=== PATIENT | female | born 1965 | race Caucasian/White ===

== ENCOUNTER 2017-05-23 07:37 | Emergency (ER) | payer BC, OTHER ==
[~2017-05-23] VITALS: Ht 157.5 cm; Wt 103.0 kg
[~2017-05-23 07:37] MED LIST: CYCL-36 PO; DICL75 PO
[2017-05-23 07:41] VITALS: BP 236/113; PULSE 82; RESP 16; TEMP 98.1; O2SAT 93
[2017-05-23 08:03] LABS: BLOOD, URINE SMALL (NEG); GLUCOSE,URINE NEG (NEG); KETONE, URINE 15 mg/dL (NEG); NITRITE,URINE NEG (NEG); PH, URINE 5.5 (5.0-8.5); URINE COLOR YELLOW (YELLW/STRAW); URINE LEUKOCYTE ESTERASE NEG (NEG)
[2017-05-23 08:11] LABS: BILIRUBIN, URINE NEG (NEG)
--- NOTE | 2017-05-23 08:11 | PD ---
HPI Chief Complaint: Abdominal Pain Time Seen by Provider: 08:07 Travel History International Travel<30 days: No Contact w/Intl Traveler<30days: No Traveled to known affect area: No History of Present Illness HPI This 51-year-old female is complaining of abdominal pain and vomiting. She was diagnosed with type 2 diabetes about a month ago. At that time she was started on metformin, cholesterol medication and a blood pressure medicine. She took them for a while and started to develop discomfort across her upper abdomen. She has been very nauseated in the last few days unable to hold anything down she says she sometimes is able to hold something down and she vomits nothing comes back. She has been constipated. She has a history of an appendectomy in 1984. Discomfort is been fairly constant. She has not taken her metformin since Sunday and she has not been able to take her blood pressure medicine for cholesterol medicine for 2 days PFSH Past Medical History Hx Anticoagulant Therapy: No Arthritis: Yes Cardiovascular Problems: Yes (HTN, CHOL) Diabetes: Yes Diminished Hearing: No Hypertension: Yes Immunizations Current: Yes ?: Not Menopausal: Yes Past Surgical History Appendectomy: Yes Social History Alcohol Use: No Tobacco Use: Yes Substance Use: No Allergies-Medications (Allergen,Severity, Reaction): Coded Allergies: No Known Allergies (Unverified Adverse Reaction, Unknown, 05/23/17) Reported Meds & Prescriptions Reported Meds & Active Scripts Active Reported Atorvastatin (Atorvastatin Calcium) 20 Mg Tab 20 Mg PO HS Lisinopril 20 Mg Tab 20 Mg PO DAILY Review of Systems General / Constitutional: No: Fever, Chills Eyes: No: Diploplia, Blurred Vision HENT: No: Headaches, Vertigo Cardiovascular: No: Chest Pain or Discomfort, Palpitations Respiratory: No: Cough Gastrointestinal: Positive: Nausea, Vomiting Genitourinary: No: Frequency Musculoskeletal: No: Myalgias, Arthralgias Skin: No Rash, No Itching Neurologic: No: Weakness, Dizziness Hematologic/Lymphatic: No: Easy Bruising Physical Exam Narrative GENERAL: Well-developed female SKIN: Focused skin assessment warm/dry. HEAD: Atraumatic. Normocephalic. EYES: Pupils equal and round. No scleral icterus. No injection or drainage. ENT: No nasal bleeding or discharge. Mucous membranes pink and moist. NECK: Trachea midline. No JVD. CARDIOVASCULAR: Regular rate and rhythm. No murmur appreciated. RESPIRATORY: No accessory muscle use. Clear to auscultation. Breath sounds equal bilaterally. GASTROINTESTINAL: Abdomen soft, some mild upper abdominal tenderness without guarding or rigidity, nondistended. Hepatic and splenic margins not palpable. MUSCULOSKELETAL: No obvious deformities. No clubbing. No cyanosis. No edema. NEUROLOGICAL: Awake and alert. No obvious cranial nerve deficits. Motor grossly within normal limits. Normal speech. PSYCHIATRIC: Appropriate mood and affect; insight and judgment normal. Data Data Last Documented VS Vital Signs Date Time Temp Pulse Resp B/P (MAP) Pulse Ox O2 Delivery O2 Flow Rate FiO2 05/23/17 11:04 76 16 198/105 (136) 100 Nasal Cannula 2.00 05/23/17 07:41 98.1 Orders Orders Urinalysis - C+S If Indicated (05/23/17 07:41) Ed Urine Pregnancytest Poc (05/23/17 07:41) Complete Blood Count With Diff (05/23/17 08:08) Comprehensive Metabolic Panel (05/23/17 08:08) Lipase (05/23/17 08:08) Sodium Chlor 0.9% 1000 Ml Inj (Ns 1000 M (05/23/17 08:15) Sodium Chlor 0.9% 1000 Ml Inj (Ns 1000 M (05/23/17 08:15) Ondansetron Inj (Zofran Inj) (05/23/17 08:15) Ct Abd/Pel W Iv Contrast(Rout) (05/23/17 09:01) Prochlorperazine Inj (Compazine Inj) (05/23/17 09:15) Diphenhydramine Inj (Benadryl Inj) (05/23/17 09:15) Iohexol 350 Inj (Omnipaque 350 Inj) (05/23/17 10:03) Lisinopril (Prinivil) (05/23/17 10:45) Clonidine (Catapres) (05/23/17 10:45) Labs Laboratory Tests Test 05/23/17 07:50 05/23/17 08:15 Urine Collection Type CLEAN CATCH Urine Color YELLOW Urine Turbidity CLEAR Urine pH 5.5 Urine Specific [place] GREATER/EQUAL 1.030 Urine Protein 100 mg/dL Urine Glucose (UA) NEG mg/dL Urine Ketones 15 mg/dL Urine Occult Blood SMALL Urine Nitrite NEG Urine Bilirubin NEG Urine Urobilinogen 0.2 MG/DL Urine Leukocyte Esterase NEG Urine RBC 10-14 /hpf Urine WBC 3-5 /hpf Urine Squamous Epithelial Cells > 8 /hpf Urine Bacteria FEW /hpf Microscopic Urinalysis Comment CULT NOT INDICATED Urine Collection Time 07:50 White Blood Count 17.9 TH/MM3 Red Blood Count 5.37 MIL/MM3 Hemoglobin 15.8 GM/DL Hematocrit 46.9 % Mean Corpuscular Volume 87.3 FL Mean Corpuscular Hemoglobin 29.3 PG Mean Corpuscular Hemoglobin Concent 33.6 % Red Cell Distribution Width 15.2 % Platelet Count 373 TH/MM3 Mean Platelet Volume 10.1 FL Neutrophils (%) (Auto) 89.1 % Lymphocytes (%) (Auto) 5.7 % Monocytes (%) (Auto) 4.7 % Eosinophils (%) (Auto) 0.1 % Basophils (%) (Auto) 0.4 % Neutrophils # (Auto) 16.0 TH/MM3 Lymphocytes # (Auto) 1.0 TH/MM3 Monocytes # (Auto) 0.8 TH/MM3 Eosinophils # (Auto) 0.0 TH/MM3 Basophils # (Auto) 0.1 TH/MM3 CBC Comment DIFF FINAL Differential Comment Blood Urea Nitrogen 12 MG/DL Creatinine 0.74 MG/DL Random Glucose 212 MG/DL Total Protein 7.9 GM/DL Albumin 3.5 GM/DL Calcium Level 9.4 MG/DL Alkaline Phosphatase 98 U/L Aspartate Amino Transf (AST/SGOT) 12 U/L Alanine Aminotransferase (ALT/SGPT) 18 U/L Total Bilirubin 0.4 MG/DL Sodium Level 140 MEQ/L Potassium Level 4.2 MEQ/L Chloride Level 102 MEQ/L Carbon Dioxide Level 30.1 MEQ/L Anion Gap 8 MEQ/L Estimat Glomerular Filtration Rate 82 ML/MIN Lipase 393 U/L [facility] Medical Decision Making Medical Screen Exam Complete: Yes Emergency Medical Condition: Yes Medical Record Reviewed: Yes Differential Diagnosis Differential includes pancreatitis, gastritis, cholecystitis Hemoglobin is 15.8. White count is 17,000. A CT scan of the abdomen and pelvis was obtained. There are some inflammatory changes around the pancreas. Her lipase level is 393 which is the upper limits of normal Narrative Course Patient has been given some IV fluids and Zofran reports feeling better. I'm going to release her with prescription for Zofran. CT suggests that there may be some mild pancreatic inflammation. Her lipase is in the upper limits of normal is not drink alcohol. I believe her symptoms are related to her recent use of Glucophage Diagnosis Primary Impression: Adverse drug reaction Scripts Ondansetron Odt (Zofran Odt) 4 Mg Tab 4 MG SL Q6HR Y for Nausea/Vomiting, #12 TAB 0 Refills Prov: Hipolito Fuentes MD 05/23/17 Disposition: 01 DISCHARGE HOME Condition: Stable Hipolito Fuentes MD May 23, 2017 08:11
[2017-05-23 08:13] LABS: BACTERIA, URINE FEW /hpf; SQUAMOUS EPITHELIAL CELL URINE > 8 /hpf (0-5)
[2017-05-23] MEDS ORDERED: SODIUM CHLOR 0.9% 1000 ML INJ 1,000 ML IV ONE ×2 (08:15)
[2017-05-23] MEDS ORDERED: ONDANSETRON HCL 4 MG/2 ML VIAL IV PUSH ONE (08:15)
[2017-05-23 08:35] LABS: BASOPHIL # 0.1 TH/MM3 (0-0.2); BASOPHIL % 0.4 % (0.0-2.0); EOSINOPHIL % 0.1 % (0.0-4.0); HEMATOCRIT 46.9 % (35.0-46.0); HEMOGLOBIN 15.8 GM/DL (11.6-15.3); LYMPH % 5.7 % (9.0-44.0); MEAN CELL VOLUME 87.3 FL (80.0-100.0); MEAN CORPUSCULAR HEMOGLOBIN 29.3 PG (27.0-34.0); MEAN CORPUSCULAR HGB CONC 33.6 % (32.0-36.0); MEAN PLATELET VOLUME 10.1 FL (7.0-11.0); MONO % 4.7 % (0.0-8.0); MONOCYTE # 0.8 TH/MM3 (0-0.9); NEUT % 89.1 % (16.0-70.0); PLATELET COUNT 373 TH/MM3 (150-450); RED BLOOD COUNT 5.37 MIL/MM3 (4.00-5.30); RED CELL DISTRIBUTION WIDTH 15.2 % (11.6-17.2); WHITE BLOOD COUNT 17.9 TH/MM3 (4.0-11.0)
[2017-05-23 08:44] LABS: CHLORIDE 102 MEQ/L (98-107); SODIUM (NA) 140 MEQ/L (136-145)
[2017-05-23 08:48] LABS: ALBUMIN 3.5 GM/DL (3.4-5.0); CALCIUM 9.4 MG/DL (8.5-10.1)
[2017-05-23 08:49] LABS: BICARBONATE 30.1 MEQ/L (21.0-32.0); BLOOD UREA NITROGEN 12 MG/DL (7-18); GLUCOSE,RANDOM 212 MG/DL (74-106)
[2017-05-23 08:51] LABS: ALT (GPT) 18 U/L (10-53); AST (GOT) 12 U/L (15-37); CREATININE 0.74 MG/DL (0.50-1.00); GLOMERULAR FILTRATION RATE 82 ML/MIN (>89)
[2017-05-23 08:53] LABS: TOTAL BILIRUBIN ADULT 0.4 MG/DL (0.2-1.0); TOTAL PROTEIN 7.9 GM/DL (6.4-8.2)
[2017-05-23 08:54] LABS: ALKALINE PHOSPHATASE 98 U/L (45-117)
[2017-05-23] MEDS ORDERED: LISI-515 PO (09:03)
[2017-05-23] MEDS ORDERED: ATOR20TA15 PO (09:03)
[2017-05-23 09:05] VITALS: BP 191/90; PULSE 71; RESP 18; O2SAT 100
[2017-05-23] MEDS ORDERED: PROCHLORPERAZINE INJ 10 MG/2 ML VIAL IV PUSH ONE (09:15)
[2017-05-23] MEDS ORDERED: diphenhydrAMINE HCL 50 MG/ML VIAL IV PUSH ONE (09:15)
[2017-05-23 09:50] VITALS: BP 188/90; PULSE 75; RESP 16; O2SAT 96
[2017-05-23] MEDS ORDERED: IOHEXOL 350 MG/ML 10 ML VIAL (for RAD DIAG) IVCONTRAST ONE (10:03)
--- NOTE | 2017-05-23 10:17 | RADRPT ---
EXAM DATE/TIME: 05/23/2017 09:50 [place] COMPARISON: No previous studies available for comparison. INDICATIONS : Upper abdominal pain, nausea, vomiting and constipation. IV CONTRAST: 85 cc Omnipaque 350 (iohexol) IV ORAL CONTRAST: No oral contrast ingested. RADIATION DOSE: 22.15 CTDIvol (mGy) MEDICAL HISTORY : Hypertension. Diabetes mellitus type 2. SURGICAL HISTORY : Appendectomy. ENCOUNTER: Initial ACUITY: 3 days PAIN SCALE: 7/10 LOCATION: Bilateral upper quadrant TECHNIQUE: Volumetric scanning of the abdomen and pelvis was performed. Using automated exposure control and ad justment of the mA and/or kV according to patient size, radiation dose was kept as low as reasonably achievable to obtain optimal diagnostic quality images. DICOM format image data is available electro nically for review and comparison. FINDINGS: LOWER LUNGS: Atelectasis and/or scarring is noted within the right lung base. Cardiomegaly is noted LIVER: Homogeneous density without lesion. There is no dilation of the biliary tree. No calcified gallston es. SPLEEN: Normal size without lesion. PANCREAS: Minimal peripancreatic inflammatory changes are noted suggesting possible acute pancreatitis. Correla tion with amylase and lipase is recommended. No pancreatic abscess or pseudocyst is noted. KIDNEYS: Normal in size and shape. Tiny subcentimeter low-density lesions are noted within the lower pole the right kidney consistent with probable tiny cysts. There is no stone or hydronephrosis. ADRENAL GLANDS: Within normal limits. VASCULAR: There is no aortic aneurysm. BOWEL/MESENTERY: The stomach, small bowel, and colon demonstrate no acute abnormality. There is no free intraperitone al air or fluid. The appendix is normal. ABDOMINAL WALL: Within normal limits. RETROPERITONEUM: There is no lymphadenopathy. BLADDER: No wall thickening or mass. REPRODUCTIVE: The expected region of the cervix is enlarged which is indeterminate. Pelvic ultrasound may be helpfu l for further evaluation of this finding to rule out mass. INGUINAL: There is no lymphadenopathy or hernia. MUSCULOSKELETAL: Degenerative changes and scoliosis of the lumbar spine are noted. CONCLUSION: 1. Mild peripancreatic inflammatory changes suggesting acute pancreatitis. Correlation with amylase a nd lipase values is recommended. 2. Enlarged cervix which is indeterminate. Outpatient pelvic ultrasound may be helpful for further ev aluation this finding to rule out mass if clinical indicated. 3. Degenerative changes and scoliosis of the lumbar spine. 4. Tiny subcentimeter right lower pole renal cysts. 5. Fibrotic scarring and/or atelectasis within right lung base. 6. Cardiomegaly. Terry Cesar MD on May 23, 2017 at 10:06 Board Certified Radiologist. This report was verified electronically.
[2017-05-23] MEDS ORDERED: LISINOPRIL 20 MG TAB PO ONE (10:45)
[2017-05-23] MEDS ORDERED: cloNIDine HCL 0.1 MG TAB PO ONE (10:45)
[2017-05-23 11:04] VITALS: BP 198/105; PULSE 76; RESP 16; O2SAT 100
[2017-05-23] MEDS ORDERED: ZOFR4TAB3 SL (11:45)
[2017-05-23 12:01] VITALS: BP 176/76
== END 2017-05-23 12:03 | disposition home or self-care (01) ==
LOC: PHED 07:37
DX: T78.40XA Allergy, unspecified, initial encounter (principal); R10.9 Unspecified abdominal pain; R11.2 Nausea with vomiting, unspecified; K59.00 Constipation, unspecified; E11.9 Type 2 diabetes mellitus without complications; I10 Essential (primary) hypertension; M41.9 Scoliosis, unspecified; N28.1 Cyst of kidney, acquired; J98.11 Atelectasis
CPT/HCPCS: 74177; 80053; 81001; 83690; 85025; 96361; 96374; 96375; 99284; J0780; J1200; J2405; J7030; Q9967

== ENCOUNTER 2018-01-05 10:11 | Observation (INO) ==
[2018-01-05] MEDS ORDERED: Morphine Inj 4 MG/ML Vial IV.PUSH ONE (10:39)
[2018-01-05] MEDS ORDERED: Sod Chloride 0.9% Inj 1,000 ML IV.SIG ONE (10:39)
--- NOTE | 2018-01-05 10:43 | ED ---
HPI General Chief complaint: Abdominal Pain Stated complaint: abdominal pain/vomiting Time Seen by Provider: 01/05/18 10:26 History of Present Illness HPI narrative: 52-year-old female presents to the emergency department for evaluation of abdominal pain and vomiting. The patient states that she began having epigastric abdominal pain with nausea and vomiting in May 2017 after she started taking metformin for diabetes. She was seen here in our ED at that time and since they thought this to be due to the metformin she was changed by her PCP to Januvia. States that after they switched her to Januvia the abdominal pain resolved until December 19, 2017. States that she came back to our ED and was seen again 12/22/17 for the same symptoms and was told that she had mild pancreatitis but was discharged home with Zofran. States that her symptoms improved for several weeks but then came back again 4 days ago. States that for the last 4 days she has had epigastric abdominal pain radiating to both sides and around to her back. States that the pain is aggravated with eating and drinking. States that she is having nausea and vomiting. States she is unable to keep any food or fluids down. States she was seen here in our ED yesterday and told that it was again pancreatitis but she was feeling better after being administered medication while here in the ED and discharged home with Zofran which she has been taking without relief of symptoms. States she is also feeling a soreness in her anterior chest, feels it is due to the vomiting. She denies any fever, chills, diarrhea, constipation, shortness of breath, cough or cold symptoms. She denies alcohol use. Prior abdominal surgeries include appendectomy. PCP Dr. Wells. Related Data Home Medications Medication Instructions Recorded Confirmed atorvastatin 20 mg PO DAILY 12/22/17 01/05/18 lisinopril 20 mg PO DAILY 12/22/17 01/05/18 sitagliptin [Januvia] 100 mg PO DAILY 12/22/17 01/05/18 Previous Rx's Medication Instructions Recorded ondansetron HCl [Zofran] 4 mg PO Q6H PRN #20 tab 01/04/18 Allergies Allergy/AdvReac Type Severity Reaction Status Date / Time No Known Allergies Allergy Verified 01/05/18 10:23 Review of Systems ROS: all other systems reviewed are negative [facility] Family History Family History Other Prostate cancer Social History Social History Substance History: Past History Second Hand Smoke Exposure: Yes Smoking Status: Heavy tobacco smoker Tobacco Type: Cigarettes How Often Do You Have a Drink Containing Alcohol: Monthly or less Immunization History Tetanus Immunization: >5 Years Exam Narrative Exam Narrative: GENERAL: Well-nourished and well-developed pleasant patient in no acute distress who is nontoxic appearing. SKIN: Warm and dry. HEAD: Normocephalic and atraumatic. EYES: No injection, drainage, or hyphema noted. PERRLA. EOMI. ENT: No nasal drainage noted. Oropharynx is clear. NECK: Supple and the trachea is midline. CARDIOVASCULAR: Regular rate and rhythm. RESPIRATORY: Breath sounds are equal bilaterally with no accessory muscle use, wheezing, rhonchi, or crackles. GASTROINTESTINAL: Epigastric tenderness to palpation. Mild generalized abdominal tenderness. No rebound tenderness or guarding. Abdomen is soft and nondistended. MUSCULOSKELETAL: No obvious deformities, swelling, cyanosis, or ecchymosis is present throughout the upper and lower extremities. Patient has full range of motion without any signs of neurovascular compromise. Distal pulses are 2+ throughout. NEUROLOGICAL: Awake, alert, and oriented. Normal speech and gait. Cranial nerves are grossly intact. Course Initial Documented Vital Signs Temperature 98.8 F 01/05/18 10:14 Pulse Rate 56 L 01/05/18 10:14 Respiratory Rate 16 01/05/18 10:14 Blood Pressure 212/102 H 01/05/18 10:14 Pulse Oximetry 95 01/05/18 10:14 Last Documented Vital Signs Temperature 98.8 F 01/05/18 10:14 Pulse Rate 61 01/05/18 14:42 Respiratory Rate 16 01/05/18 14:42 Blood Pressure 178/77 H 01/05/18 14:42 Pulse Oximetry 97 01/05/18 15:36 Medical Decision Making IVAN Attestation IVAN supervised visit: Yes Attestation: I, Dr. Zarate, have reviewed the advance practice practitioner's documentation and am in agreement, met with the patient face to face, made the diagnosis, and the medical decision making was done by me. *My assessment and Findings: Patient seen and evaluated with PA, please see PA note for further details. She has been here multiple times in the last week, and has been having different nausea and vomiting, doing poorly at home, with CAT scan showing signs of pancreatitis. Chest x-ray is showing a right-sided lower lobe infiltrate questionable for underlying pneumonia. She has leukocytosis. At this point, there is concern for underlying pneumonia and IV antibiotics were initiated. Planning to admit for further treatment. Case is discussed with hospitalist for admission. [facility] Narrative Medical decision making narrative: 52-year-old female presents to the emergency department for evaluation of upper abdominal pain with nausea and vomiting for 4 days. Patient is afebrile. Her blood pressure is elevated however she is in pain. EKG shows sinus bradycardia with a ventricular rate of 52 bpm, no acute ST elevations or depressions. IV access is obtained, labs have been drawn and sent. Patient is placed on cardiac telemetry and pulse oximetry monitoring. Patient is administered morphine 4 mg IV, Reglan 10 mg IV and IV fluids. I did review the patient's medical record which shows she has been seen 3 times for the same complaint since May. She has had a CT scan at every 1 of these visits which has shown mild pancreatic inflammation, fibroid uterus and an abnormal cervicovaginal region. She had a gallbladder ultrasound done yesterday which was within normal limits. Yesterday when she was seen here she had a slightly elevated white blood cell count and an elevated lipase of 693. CBC shows elevated white blood cell count of 17.7 and elevated hemoglobin and hematocrit. CMP is unremarkable. Troponin is less than 0.02. Lipase is 303. Chest x-ray shows mild right base atelectasis or consolidation with prominent interstitium throughout. Patient has noted to become hypoxic with oxygen saturation of 88% on room air while here in the ED. She does improve with supplemental oxygen. With the hypoxia and noted consolidation in the right lung base and elevated white blood cell count we will treat the patient for pneumonia with Rocephin 1 g IV and Zithromax 500 mg IV. Patient will be admitted to medicine service for hypoxia, pneumonia and intractable nausea and vomiting. I discussed the case with my attending physician Dr. Zarate who is aware of the patients history, physical examination findings, and treatment plan. I spoke with Dr. Gibson [facility] who accepts patient to his service under observation. Medical Screen Exam Complete: Yes Emergency Medical Condition: Yes Differential Diagnosis Differential Diagnosis: Pancreatitis versus hepatobiliary pathology versus medication reaction versus dehydration Lab Data Result diagrams: 01/05/18 11:20 01/05/18 11:20 Lab Results 01/05/18 01/05/18 Range/Units 11:20 11:20 CBC w Diff Auto diff final WBC 17.7 H (4.0-11.0) th/mm3 RBC 5.34 H (4.00-5.30) mil/mm3 Hgb 15.6 H (11.6-15.3) gm/dL Hct 46.3 H (35.0-46.0) % MCV 86.6 (80.0-100.0) fL MCH 29.3 (27.0-34.0) pg MCHC 33.8 (32.0-36.0) % RDW 15.0 (11.6-17.2) % Plt Count 262 (150-450) th/mm3 MPV 10.3 (7.0-11.0) fL Neut % (Auto) 88.2 H (16.0-70.0) % Lymph % (Auto) 5.4 L (9.0-44.0) % [place] % (Auto) 5.8 (0.0-8.0) % Eos % (Auto) 0.0 (0.0-4.0) % Baso % (Auto) 0.6 (0.0-2.0) % Neut # (Auto) 15.6 H (1.8-7.7) th/mm3 Lymph # (Auto) 1.0 (1.0-4.8) th/mm3 [place] # (Auto) 1.0 H (0.0-0.9) th/mm3 Eos # (Auto) 0.0 (0.0-0.4) th/mm3 Baso # (Auto) 0.1 (0.0-0.2) th/mm3 WBC Differential . Differential Comment . Sodium 140 (136-145) meq/L Potassium 3.6 (3.5-5.1) meq/L Chloride 102 (98-107) meq/L Carbon Dioxide 30.3 (21.0-32.0) meq/L Anion Gap 8 (5-15) meq/L BUN 13 (7-18) mg/dL Creatinine 0.75 (0.50-1.00) mg/dL Estimated GFR 81 L (>89) mL/min Random Glucose 164 H (74-106) mg/dL Calcium 8.5 (8.5-10.1) mg/dL Magnesium 2.0 (1.5-2.5) mg/dL Total Bilirubin 0.4 (0.2-1.0) mg/dL AST 12 L (15-37) U/L ALT 22 (10-53) U/L Alkaline Phosphatase 99 (45-117) U/L Troponin I Less than 0.02 L (0.02-0.05) ng/mL Total Protein 7.7 (6.4-8.2) g/dL Albumin 3.6 (3.4-5.0) g/dL Lipase 303 (73-393) U/L Imaging Data Radiologist's impression: Chest X-Ray 01/05/18 00:00 CONCLUSION: 1. Minimal bibasilar atelectasis/scarring. 2. Mild interstitial prominence may reflect mild interstitial edema. Chest X-Ray 01/05/18 10:39 CONCLUSION: Mild right base atelectasis or consolidation. Prompt of interstitium throughout. This could be related to underlying interstitial disease or pulmonary venous hypertension. Discharge Plan Discharge Disposition Patient Disposition: 30 Still Patient Discharge Details Diagnosis: Hypoxia, Pneumonia, Nausea & vomiting, Abdominal pain Physicians Team ED Provider: Rosalinda Zarate ED Midlevel Provider: Edwina Medeiros Primary Care Provider: Primary Care Shawna Healy Attending Provider: Shadi Romero Other Providers: Renetta Hutton Status ED Status: Left Department Discharge Information Discharge Date/Time: 01/05/18 15:30
--- NOTE | 2018-01-05 11:13 | XR ---
EXAM DATE: 01/05/2018 11:04 AM EST AGE/SEX: 52 years / Female INDICATIONS: Vomiting, chest pain. CLINICAL DATA: This is the patient's initial encounter. Patient reports that signs and symptoms have been present for 3 days and indicates a pain score of 7/10. MEDICAL/SURGICAL HISTORY: Diabetes. None. COMPARISON: No prior exams available for comparison. FINDINGS: The heart size is within normal limits. There is increased density at the right base. There is underl karly diffuse prominence of interstitial markings. The costophrenic angles are clear. CONCLUSION: Mild right base atelectasis or consolidation. Prompt of interstitium throughout. This could be related to underlying interstitial disease or pulmon macey venous hypertension. Electronically signed by: Jerry Juárez MD 01/05/2018 11:12 AM EST
[2018-01-05 11:48] LABS: Baso # (Auto) 0.1 th/mm3 (0.0-0.2); Baso % (Auto) 0.6 % (0.0-2.0); Hematocrit 46.3 % (35.0-46.0); Hemoglobin 15.6 gm/dL (11.6-15.3); Lymph % (Auto) 5.4 % (9.0-44.0); Mean Corpuscular HGB Conc 33.8 % (32.0-36.0); Mean Corpuscular Hemoglobin 29.3 pg (27.0-34.0); Mean Corpuscular Volume 86.6 fL (80.0-100.0); Mean Platelet Volume 10.3 fL (7.0-11.0); Mono % (Auto) 5.8 % (0.0-8.0); Neut # (Auto) 15.6 th/mm3 (1.8-7.7); Neut % (Auto) 88.2 % (16.0-70.0); Platelet Count 262 th/mm3 (150-450); Red Blood Count 5.34 mil/mm3 (4.00-5.30); White Blood Count 17.7 th/mm3 (4.0-11.0)
[2018-01-05 11:56] LABS: Chloride 102 meq/L (98-107); Potassium 3.6 meq/L (3.5-5.1); Sodium 140 meq/L (136-145)
[2018-01-05 11:59] LABS: Calcium 8.5 mg/dL (8.5-10.1)
[2018-01-05 12:00] LABS: Albumin 3.6 g/dL (3.4-5.0); Anion Gap 8 meq/L (5-15); Blood Urea Nitrogen 13 mg/dL (7-18); Carbon Dioxide 30.3 meq/L (21.0-32.0); Glucose,Random 164 mg/dL (74-106); Lipase 303 U/L (73-393)
[2018-01-05 12:03] LABS: Alanine Aminotransferase 22 U/L (10-53); Aspartate Aminotransferase 12 U/L (15-37); Glomerular Filtration Rate 81 mL/min (>89)
[2018-01-05 12:04] LABS: Total Protein 7.7 g/dL (6.4-8.2)
[2018-01-05 12:06] LABS: Alkaline Phosphatase 99 U/L (45-117)
[2018-01-05] MEDS ORDERED: Azithromycin Inj 500 MG in Sodium Chlor 0.9% Inj 250 ML IV.SIG ONE (12:36)
--- NOTE | 2018-01-05 14:28 | ECG ---
Date Performed: 01/05/2018 Time Performed: 10:47:31 PTAGE: 52 years EKG: SINUS BRADYCARDIA LATE R-WAVE TRANSITION BORDERLINE ECG NO PREVIOUS TRACING DOCTOR: Miguel Ángel Roper Interpretating Date/Time 01/05/2018 14:27:18
--- NOTE | 2018-01-05 14:44 | XR ---
EXAM DATE: 01/05/2018 2:38 PM EST AGE/SEX: 52 years / Female INDICATIONS: . Respiratory distress. CLINICAL DATA: This is the patient's subsequent encounter. Patient reports that signs and symptoms h ave been present for 1 day and indicates a pain score of 3/10. MEDICAL/SURGICAL HISTORY: Diabetes. None. COMPARISON: [facility], CHEST 1V SINGLE AP, 01/05/2018. . FINDINGS: Linear parenchymal opacities at the lung bases similar to previous exam. Mild interstitial prominence . No new focal pleural or parenchymal opacities. Cardiomediastinal contours are within normal limits. Remainder of the exam is unchanged. CONCLUSION: 1. Minimal bibasilar atelectasis/scarring. 2. Mild interstitial prominence may reflect mild interstitial edema. Electronically signed by: Patricio Jc MD 01/05/2018 2:43 PM EST
--- NOTE | 2018-01-05 15:27 | P.HP ---
History of Present Illness Primary Care Physician: No Primary Care Physician History of Present Illness: 52-year-old white female being admitted for intractable nausea and vomiting and abdominal cramping. Patient was in usual state of health until earlier this month when she began experiencing nausea vomiting and abdominal cramping. She came to the ER on 12/15 and was given antiemetics with unremarkable findings on her workup, and discharged home. She did well for the next 3 weeks until her symptoms started up again about 1 week ago with nausea vomiting abdominal cramping. Reports postprandial abdominal cramping which is the same in intensity whether she drinks water or eats fried solid meals.Reports having significantly decreased bowel movements, cannot remember if she is passing gas. Her emesis is either clear or bilious but denies any blood. Denies any fevers or chills. Denies any acute abdominal distention. Does report being bloated. She had a CT scan done yesterday as well as a gallbladder ultrasound yesterday both of which were not definitive for any acute findings, only very mild possible questionable pancreatitis. Lipase was only in the low 600s. Patient was discharged home with Zofran, 8 some eggs and within an hour was vomiting again. She returns to the ER today due to the persistence of her symptoms. Patient says she has taken a few NSAIDs to try to treat her symptoms, namely Advil and Aleve, she thinks she is only taking 1-2 pills at most per day. Patient says that these GI symptoms occurred similarly many months ago when she was started on metformin and ultimately discontinued metformin due to attributed GI intolerance. Says she was started on Januvia at that time. Patient says her A1c is somewhat in the sevens, says her fasting sugars usually run in the 120s. In the emergency department she was noted to be very hypertensive with a systolic pressure touching the 200s. Chest x-ray was performed which seem to be of poor quality due to poor rotation, patient was given antibiotics for the thought of possible pneumonia very minimal hypoxia while she was lying down. I order another chest x-ray of a PA lateral view which I have been reviewed and I see no acute findings. CMP today is unremarkable, she is noted to be leukocytotic but I attribute this to her substantial vomiting. Review of Systems All other systems reviewed negative except as stated in HPI PMFSH - History History Provided By: Patient - Medical History Medical History: Medical History (Last Reviewed 01/05/18 @ 15:18 by Shadi Romero MD) Hx of pancreatitis Diabetes HTN (hypertension) Hyperlipidemia - Surgical History Surgical History: Surgical History (Last Reviewed 01/05/18 @ 15:18 by Shadi Romero MD) Hx of appendectomy - Family History Family History: Family History (Last Updated 01/05/18 @ 15:18 by Shadi Romero MD) Other Prostate cancer - Social History I have reviewed the patient's Social History: Yes - Tobacco History Second Hand Smoke Exposure: No Tobacco Use In Past 30 Days: Yes Smoking Status: Heavy tobacco smoker Tobacco Type: Cigarettes - Alcohol History How Often Do You Have a Drink Containing Alcohol: Monthly or less - Substance Use History Substance History: No History of Abuse - Immunization History Tetanus Immunization: >5 Years Medications and Allergies Active Medications: Active Medications Enalaprilat (Vasotec Inj) 1.25 mg IV.PUSH Q4HR PRN PRN Reason: SBP>160, DBP>90 Sodium Chloride (Ns Inj) 1,000 mls @ 100 mls/hr IV.CONT .Q10H FERNIE Pantoprazole Sodium (Protonix Inj) 40 mg IV.PUSH Q12H FERNIE Sodium Chloride (Ns Flush) 2 ml IV.FLUSH PRN PRN PRN Reason: FLUSH AFTER USING IV ACCESS Sodium Chloride (Ns Flush) 2 ml IV.FLUSH BID FERNIE Sodium Chloride (Ns Flush) 2 ml IV.FLUSH PRN PRN PRN Reason: FLUSH AFTER USING IV ACCESS Allergies Allergy/AdvReac Type Severity Reaction Status Date / Time No Known Allergies Allergy Verified 01/05/18 10:23 Home Medications Medication Instructions Recorded Confirmed Type atorvastatin 20 mg PO DAILY 12/22/17 01/05/18 History lisinopril 20 mg PO DAILY 12/22/17 01/05/18 History sitagliptin [Januvia] 100 mg PO DAILY 12/22/17 01/05/18 History Exam Vital signs: Vital Signs 01/05/18 10:14 01/05/18 10:45 01/05/18 10:46 Temperature 98.8 F Pulse Rate 56 L 58 L Respiratory Rate 16 20 Blood Pressure 212/102 H 200/100 H Pulse Oximetry 95 89 L 95 01/05/18 11:39 01/05/18 11:42 01/05/18 11:45 Temperature Pulse Rate 67 Respiratory Rate 16 Blood Pressure 184/93 H Pulse Oximetry 95 89 L 94 L 01/05/18 13:33 01/05/18 14:24 01/05/18 14:38 Temperature Pulse Rate 61 68 Respiratory Rate 16 20 Blood Pressure 205/98 H 209/99 H Pulse Oximetry 94 L 95 95 01/05/18 14:40 01/05/18 14:42 Temperature Pulse Rate 62 61 Respiratory Rate 18 16 Blood Pressure 178/77 H 178/77 H Pulse Oximetry 94 L 94 L Intake & Output 01/04/18 01/05/18 01/05/18 18:59 06:59 18:59 Intake Total 1250 / 1250 Balance 1250 / 1250 Weight 100 kg Intake: IV 1250 / 1250 Azithromycin Inj 500 MG In NS 250 / 250 Inj 250 ML @ 250 mls/hr IV.SIG ONCE ONE Rx#:[id number] NS Inj 1,000 ML @ Wide Open IV. 1000 / 1000 SIG BOLUS ONE Rx#:[id number] Narrative: VS: afebrile GENERAL: Well-nourished middle-aged white female, no acute distress SKIN: Warm and dry. EYES: No scleral icterus. No injection or drainage. ENT: No nasal bleeding or discharge. Mucous membranes pink and moist. CARDIOVASCULAR: Regular rate and rhythm. no murmurs RESPIRATORY: No accessory muscle use. Clear to auscultation. Breath sounds equal bilaterally. GASTROINTESTINAL: Abdomen soft with obese habitus, mild tenderness to palpation diffusely with no rebound, no tone distention Extremities: No clubbing, cyanosis, or edema. No obvious deformities. MUSCULOSKELETAL: adequate muscle bulk and tone for age and habitus NEUROLOGICAL: Awake and alert. No obvious cranial nerve deficits. No facial droop nor slurred speech noted. PSYCHIATRIC: Appropriate mood and affect; insight and judgment normal. Results - Labs CBC & Chem 7: 01/05/18 11:20 01/05/18 11:20 Labs: Laboratory Results - last 24 hr 01/05/18 01/05/18 11:20 11:20 CBC w Diff Auto diff final WBC 17.7 H RBC 5.34 H Hgb 15.6 H Hct 46.3 H MCV 86.6 MCH 29.3 MCHC 33.8 RDW 15.0 Plt Count 262 MPV 10.3 Neut % (Auto) 88.2 H Lymph % (Auto) 5.4 L [place] % (Auto) 5.8 Eos % (Auto) 0.0 Baso % (Auto) 0.6 Neut # (Auto) 15.6 H Lymph # (Auto) 1.0 [place] # (Auto) 1.0 H Eos # (Auto) 0.0 Baso # (Auto) 0.1 WBC Differential . Differential Comment . Sodium 140 Potassium 3.6 Chloride 102 Carbon Dioxide 30.3 Anion Gap 8 BUN 13 Creatinine 0.75 Estimated GFR 81 L Random Glucose 164 H Calcium 8.5 Magnesium 2.0 Total Bilirubin 0.4 AST 12 L ALT 22 Alkaline Phosphatase 99 Troponin I Less than 0.02 L Total Protein 7.7 Albumin 3.6 Lipase 303 - Imaging Impressions Chest X-Ray 01/05/18 00:00 CONCLUSION: 1. Minimal bibasilar atelectasis/scarring. 2. Mild interstitial prominence may reflect mild interstitial edema. Chest X-Ray 01/05/18 10:39 CONCLUSION: Mild right base atelectasis or consolidation. Prompt of interstitium throughout. This could be related to underlying interstitial disease or pulmonary venous hypertension. Caprini VTE Risk Assessment Caprini VTE Risk Assessment: Moderate/High Risk (score >= 2) VTE Pharmacological Exception Reason: Postop bleeding Caprini Risk Assessment Model: Point Value = 1 Point Value = 2 Point Value = 3 Point Value = 5 Age 41-60 Minor surgery BMI > 25 kg/m2 Swollen legs Varicose veins or History of unexplained or recurrent spontaneous Oral contraceptives or hormone replacement Sepsis (< 1 month) Serious lung disease, including pneumonia (< 1 month) Abnormal pulmonary function Acute myocardial infarction Congestive heart failure (< 1 month) History of inflammatory bowel disease Medical patient at bed rest Age 61-74 Arthroscopic surgery Major open surgery (> 45 min) Laparoscopic surgery (> 45 min) Malignancy Confined to bed (> 72 hours) Immobilizing plaster cast Central venous access Age >= 75 History of VTE Family history of VTE Factor V Leiden Prothrombin 10103L Lupus anticoagulant Anticardiolipin antibodies Elevated serum homocysteine Heparin-induced thrombocytopenia Other congenital or acquired thrombophilia Stroke (< 1 month) Elective arthroplasty Hip, pelvis, or leg fracture Acute spinal cord injury (< 1 month) Prophylaxis Regimen: Total Risk Factor Score Risk Level Prophylaxis Regimen 0-1 Low Early ambulation 2 Moderate Order ONE of the following: *Sequential Compression Device (SCD) *Heparin 5000 units SQ BID 3-4 Higher Order ONE of the following medications: *Heparin 5000 units SQ TID *Enoxaparin/Lovenox 40 mg SQ daily (WT < 150 kg, CrCl > 30 mL/min) *Enoxaparin/Lovenox 30 mg SQ daily (WT < 150 kg, CrCl > 10-29 mL/min) *Enoxaparin/Lovenox 30 mg SQ BID (WT < 150 kg, CrCl > 30 mL/min) AND/OR *Sequential Compression Device (SCD) 5 or more Highest Order ONE of the following medications: *Heparin 5000 units SQ TID (Preferred with Epidurals) *Enoxaparin/Lovenox 40 mg SQ daily (WT < 150 kg, CrCl > 30 mL/min) *Enoxaparin/Lovenox 30 mg SQ daily (WT < 150 kg, CrCl > 10-29 mL/min) *Enoxaparin/Lovenox 30 mg SQ BID (WT < 150 kg, CrCl > 30 mL/min) AND *Sequential Compression Device (SCD) Assessment and Plan - Plan 52-year-old white female being admitted for intractable nausea vomiting and abdominal pain refractory N/V + abd pain Entertaining PUD (nsaids) vs gastroparesis vs SBO vs HTN encephalopathy - UDS to r/o THC - If this workup is unremarkable and symptoms persist, then can proceed with either HIDA scan and/or small bowel follow-through - Protonix - Reglan before meals to see if this resolves her issue; if so can be discharged tomorrow if tolerating multiple meals w/ close GI f/u for possible EGD. Otherwise anticipate EGD on Sunday, Consulting GI to consider EGD if symptoms persist HTN urgency -Likely as a result of her vomiting as opposed to the cause of her vomiting and lack of being able to keep down her home medications including lisinopril -Vasotec HYL - Resume home Lipitor when tolerating po meds DM - ss w/ accuchecks, hold home januvia for now - A1c Positional, supine hypoxia - likely 2/2 pickwickian syndrome, O2 supplementation as needed, Lovenox x1 for now given possibility of procedure
[2018-01-05] MEDS: Pantoprazole Inj 40 MG Vial IV.PUSH SCH (16:47)
[2018-01-05] MEDS: Sod Chloride 0.9% Inj 1,000 ML IV.CONT SCH (16:47)
[2018-01-05] MEDS ORDERED: Enoxaparin Inj 40 MG/0.4 ML Syringe SQ ONE (17:00)
[2018-01-05 17:29] LABS: Amphetamine Screen,Urine Neg (Neg)
[2018-01-05 17:31] LABS: Barbiturate Screen,Urine Neg (Neg)
[2018-01-05 17:34] LABS: Cannabinoid Screen,Urine Neg (Neg); Cocaine Screen,Urine Neg (Neg)
[2018-01-05 17:42] LABS: Opiate Screen,Urine Pos (Neg)
[2018-01-05] MEDS ORDERED: hydrALAZINE HCl Inj 20 MG/ML Vial IV.PUSH ONE ×2 (20:00→23:12)
[2018-01-06] MEDS: Sod Chloride 0.9% Inj 1,000 ML IV.CONT SCH ×3 (02:39→12:22)
[2018-01-06] MEDS: Pantoprazole Inj 40 MG Vial IV.PUSH SCH ×2 (04:41→16:38)
[2018-01-06] MEDS ORDERED: Acetaminophen 325 MG Tablet PO PRN (06:37)
[2018-01-06] MEDS ORDERED: Dextrose 50% in Water 50 ML Vial IV.PUSH PRN (09:19)
[2018-01-06 09:56] LABS: Baso # (Auto) 0.3 th/mm3 (0.0-0.2); Baso % (Auto) 1.6 % (0.0-2.0); Eos % (Auto) 0.1 % (0.0-4.0); Hematocrit 46.2 % (35.0-46.0); Hemoglobin 15.4 gm/dL (11.6-15.3); Lymph % (Auto) 6.1 % (9.0-44.0); Mean Corpuscular HGB Conc 33.3 % (32.0-36.0); Mean Corpuscular Volume 87.2 fL (80.0-100.0); Mean Platelet Volume 10.4 fL (7.0-11.0); Mono % (Auto) 6.6 % (0.0-8.0); Neut # (Auto) 13.5 th/mm3 (1.8-7.7); Neut % (Auto) 85.6 % (16.0-70.0); Platelet Count 250 th/mm3 (150-450); Red Cell Distribution Width 14.6 % (11.6-17.2); White Blood Count 15.8 th/mm3 (4.0-11.0)
[2018-01-06] MEDS ORDERED: Lisinopril 20 MG Tablet PO SCH (10:00)
--- NOTE | 2018-01-06 10:47 | P.PN ---
Subjective Interval history: Nursing denies any acute changes overnight. Patient reports tolerating her clear liquid dinner last night with Jell-O as she was premedicated with Reglan. No nausea or vomiting since yesterday evening. No fevers. Patient reports she did have a bowel movement which was unremarkable. Physical Exam Vital signs: Vital Signs 01/05/18 10:45 01/05/18 10:46 01/05/18 11:39 Temperature Pulse Rate 58 L 67 Respiratory Rate 20 16 Blood Pressure 200/100 H 184/93 H Pulse Oximetry 89 L 95 95 01/05/18 11:42 01/05/18 11:45 01/05/18 13:33 Temperature Pulse Rate 61 Respiratory Rate 16 Blood Pressure 205/98 H Pulse Oximetry 89 L 94 L 94 L 01/05/18 14:24 01/05/18 14:38 01/05/18 14:40 Temperature Pulse Rate 68 62 Respiratory Rate 20 18 Blood Pressure 209/99 H 178/77 H Pulse Oximetry 95 95 94 L 01/05/18 14:42 01/05/18 15:36 01/05/18 16:00 Temperature 99.2 F Pulse Rate 61 61 Respiratory Rate 16 23 Blood Pressure 178/77 H 219/99 H Pulse Oximetry 94 L 97 95 01/05/18 19:00 01/05/18 19:31 01/05/18 20:00 Temperature 98.8 F Pulse Rate 58 L 66 93 H Respiratory Rate 21 22 20 Blood Pressure 205/95 H 200/84 H 180/81 H Pulse Oximetry 96 96 97 01/05/18 20:18 01/05/18 20:43 01/05/18 22:00 Temperature Pulse Rate 86 102 H 82 Respiratory Rate 23 30 H 24 Blood Pressure 180/81 H 185/72 H 195/89 H Pulse Oximetry 96 93 L 94 L 01/05/18 23:00 01/06/18 00:00 01/06/18 01:00 Temperature 98.5 F Pulse Rate 70 104 H 86 Respiratory Rate 24 22 23 Blood Pressure 181/89 H 167/77 H 163/86 H Pulse Oximetry 94 L 95 93 L 01/06/18 02:35 01/06/18 04:00 01/06/18 08:00 Temperature 99.3 F 98.5 F Pulse Rate 82 78 68 Respiratory Rate 25 H 30 H 24 Blood Pressure 174/77 H 167/83 H 171/82 H Pulse Oximetry 95 96 01/06/18 10:04 Temperature Pulse Rate Respiratory Rate 18 Blood Pressure Pulse Oximetry Intake & Output 01/05/18 01/06/18 01/06/18 18:59 06:59 18:59 Intake Total 1490 / 1490 1100 / 1100 Output Total 200 / 200 Balance 1290 / 1290 1100 / 1100 Weight 100 kg 98.8 kg Intake: IV 1250 / 1250 1100 / 1100 NS Inj 1,000 ML @ 100 mls/hr IV 1000 / 1000 .CONT .Q10H FERNIE Rx#:[id number] Azithromycin Inj 500 MG In NS 250 / 250 Inj 250 ML @ 250 mls/hr IV.SIG ONCE ONE Rx#:[id number] NS Inj 1,000 ML @ Wide Open IV. 1000 / 1000 SIG BOLUS ONE Rx#:[id number] Rocephin Inj 1,000 MG In NS Inj 100 / 100 100 ML @ 200 mls/hr IV.SIG ONCE ONE Rx#:[id number] Oral 240 / 240 Output: Urine 200 / 200 Other: # Voids 5 Date of Last Bowel Movement 01/04/18 01/04/18 01/06/18 Narrative: Heart sounds regular rate and rhythm, no murmurs Clear lungs bilaterally, labored breathing Abdomen soft, nondistended, obese in habitus, Very minimal tenderness diffusely , no focal masses palpated, positive normoactive bowel sounds sitting Chair, on room air, saturating well in the 90s Awake alert, no acute distress Results - Labs CBC & Chem 7: 01/06/18 09:40 01/05/18 11:20 Laboratory Results - last 24 hr 01/05/18 01/05/18 01/05/18 11:20 11:20 16:00 CBC w Diff Auto diff final WBC 17.7 H RBC 5.34 H Hgb 15.6 H Hct 46.3 H MCV 86.6 MCH 29.3 MCHC 33.8 RDW 15.0 Plt Count 262 MPV 10.3 Neut % (Auto) 88.2 H Lymph % (Auto) 5.4 L [place] % (Auto) 5.8 Eos % (Auto) 0.0 Baso % (Auto) 0.6 Neut # (Auto) 15.6 H Lymph # (Auto) 1.0 [place] # (Auto) 1.0 H Eos # (Auto) 0.0 Baso # (Auto) 0.1 WBC Differential . Differential Comment . Sodium 140 Potassium 3.6 Chloride 102 Carbon Dioxide 30.3 Anion Gap 8 BUN 13 Creatinine 0.75 Estimated GFR 81 L POC Glucose Random Glucose 164 H Calcium 8.5 Magnesium 2.0 Total Bilirubin 0.4 AST 12 L ALT 22 Alkaline Phosphatase 99 Troponin I Less than 0.02 L Total Protein 7.7 Albumin 3.6 Lipase 303 Urine Opiates Screen Pos H Ur Barbiturates Screen Neg Ur Amphetamines Screen Neg U Benzodiazepines Scrn Neg Urine Cocaine Screen Neg U Cannabinoids Screen Neg 01/06/18 01/06/18 07:53 09:40 CBC w Diff Auto diff final WBC 15.8 H RBC 5.30 Hgb 15.4 H Hct 46.2 H MCV 87.2 MCH 29.0 MCHC 33.3 RDW 14.6 Plt Count 250 MPV 10.4 Neut % (Auto) 85.6 H Lymph % (Auto) 6.1 L [place] % (Auto) 6.6 Eos % (Auto) 0.1 Baso % (Auto) 1.6 Neut # (Auto) 13.5 H Lymph # (Auto) 1.0 [place] # (Auto) 1.0 H Eos # (Auto) 0.0 Baso # (Auto) 0.3 H WBC Differential . Differential Comment . Sodium Potassium Chloride Carbon Dioxide Anion Gap BUN Creatinine Estimated GFR POC Glucose 169 H Random Glucose Calcium Magnesium Total Bilirubin AST ALT Alkaline Phosphatase Troponin I Total Protein Albumin Lipase Urine Opiates Screen Ur Barbiturates Screen Ur Amphetamines Screen U Benzodiazepines Scrn Urine Cocaine Screen U Cannabinoids Screen - Imaging Impressions Chest X-Ray 01/05/18 00:00 CONCLUSION: 1. Minimal bibasilar atelectasis/scarring. 2. Mild interstitial prominence may reflect mild interstitial edema. Chest X-Ray 01/05/18 10:39 CONCLUSION: Mild right base atelectasis or consolidation. Prompt of interstitium throughout. This could be related to underlying interstitial disease or pulmonary venous hypertension. Assessment and Plan - Plan 52-year-old white female being admitted for intractable nausea vomiting and abdominal pain refractory N/V + abd pain Much improved since yesterday. SBO essentially not a concern at this time as the patient has had a bowel movement. I suspect diabetic gastroparesis due to her improvement with premedication with Reglan and tolerating her meals. If the patient continues to tolerate her meals later today with premedication she can be discharged and follow-up with GI outpatient. Should she have recurrence of symptoms then I would keep her for plan for an EGD tomorrow HTN urgency -Likely as a result of her vomiting as opposed to the cause of her vomiting and lack of being able to keep down her home medications including lisinopril -Much improved with as needed meds, resume home lisinopril HYL - Resume home Lipitor when tolerating po meds DM - ss w/ accuchecks, hold home januvia for now - A1c Positional, supine hypoxia - resolved - likely 2/2 pickwickian syndrome, O2 supplementation as needed, Lovenox x1 for now given possibility of procedure Anticipate discharge today should the patient tolerated p.o. diet, will discharge the patient with Reglan to take premeals. To f/u with GI closely outpatient.
[2018-01-06] MEDS: Insulin NovoLOG Aspart Correctional Sugar Inj SQ SCH ×2 (12:18→16:46)
[2018-01-06 14:40] VITALS: O2SAT 95
[2018-01-06 14:47] VITALS: TEMP 98.7
[2018-01-06] MEDS ORDERED: NIFEdipine 10 MG Capsule PO ONE (16:45)
[2018-01-06 18:34] VITALS: BP 142/63; PULSE 92; RESP 25
[2018-01-06] MEDS ORDERED: NIFEdipine 10 MG Capsule PO SCH (21:00)
[2018-01-07 13:26] LABS: Hemoglobin A1c 7.1 % (4.3-6.0)
== END 2018-01-06 18:20 | disposition home or self-care (01) ==
LOC: PHED 10:11 → PHEDA 10:11 → PH3 14:00 → PHEDA 14:19 → PHICU 15:30
PROVIDERS: ADMIT Hospitalist; ATTEND Hospitalist